=== PATIENT | female | born 1935 | race Asian ===

== ENCOUNTER 2023-04-04 02:46 | Inpatient (IN) | payer MEDICARE, OTHER, SELFPAY ==
[2023-04-04] VITALS (11 sets, daily range): BP systolic 121–138; BP diastolic 55–75; PULSE 74–149; RESP 10–38; TEMP 35.9–37.1; O2SAT 96–98; BMI 18.7
--- NOTE | 2023-04-04 03:03 | ED_ITS ---
HPI - Fall General Chief Complaint: Fall Stated Complaint: fall- blood? Time Seen by Provider: 04/04/23 02:51 Source: EMS Mode of arrival: EMS Limitations: altered mental status History of Present Illness HPI Narrative: Patient is an 87-year-old female. Reported history of dementia. Sent by EMS from [facility] for evaluation of rectal bleeding. I have very little information from the patient she did not come with any information from the facility. Unsure as to her code status. Unsure if she is on any anticoagulation. Patient has a history of dementia per EMS. They did receive this from the nursing staff at the facility. From report patient stated that she slid out of her bed onto the floor. Unsure whether not this was witnessed. We were told that she did not hit her head. They found her sitting on her bottom leading up against the bed. When they put the patient back into bed they noticed that there was blood in her adult diaper. No other visible injuries. She was sent over for further evaluation. Review of Systems Review of Systems ROS Unobtainable: Unobtainable due to mental condition Patient History Social History Smoking Status: Unknown if ever smoked Smoking Status: Unknown if ever smoked Substance Use Type: unknown Exam Initial Vital Signs Initial Vital Signs: Vital Signs Blood Pressure 125/75 04/04/23 02:48 Const General: No ill appearing HENMT Head: normal to inspection and normocephalic Mouth: No moist mucous membranes (Very dry mucous membranes) Resp Effort & Inspection: normal respiratory effort Auscultation: clear to auscultation bilaterally Cardio Rate: tachycardic Rhythm: regular rhythm GI Inspection: distended Palpation: soft, No firm and No guarding Other: Patient has a pedunculated mass on the right upper posterior thigh. No active bleeding. Patient has quite a bit of stool in the rectum. There was obvious blood from the rectum. No hemorrhoids seen or felt. Skin Other: No skin wounds noted. Neuro Other: Patient is talking nonsensical. Does not answer questions. Minimally follows directions. Extrem Other: Moves all 4 extremities. No apparent discomfort with palpation of extremities. Scores GCS Chyna coma scale eye opening: Spontaneous Chyna coma scale verbal response: Sounds [place] coma scale motor response: Localising Chyna coma scale total score: 11 Course Orders Ordered: ED Orders 04/04/23 03:27 Basic Metabolic Panel Stat Complete Blood Count AUTO DIFF Stat Dextrose (Dextrose 5% Water) 1,000 mls @ 70 mls/hr IV CONT SHEYLA Last Admin: 04/04/23 04:17 Dose: 70 mls/hr Documented By: LUIS Vital Signs Vital signs: Vital Signs - 8 hr 04/04/23 02:48 04/04/23 02:49 04/04/23 02:52 Temperature 97.8 F Pulse Rate 117 H 115 H Respiratory Rate 18 Blood Pressure 125/75 125/55 L Pulse Oximetry 96 96 Oxygen Delivery Method Room Air Room Air 04/04/23 03:00 04/04/23 03:30 04/04/23 04:00 Temperature Pulse Rate 120 H 114 H 120 H Respiratory Rate 27 H 10 L 38 H Blood Pressure Pulse Oximetry 97 98 97 Oxygen Delivery Method Room Air Room Air Room Air MDM - Fall Lab Data Attestation: I reviewed the patient's lab results. 04/04/23 03:27 04/04/23 03:27 Labs: Lab Results 04/04/23 Range/Units 03:27 WBC 19.5 H (4.5-11.0) X10^3/uL RBC 6.03 H (4.0-5.2) X10^6/uL Hgb 12.3 (12.0-16.0) g/dL Hct 40.0 (36-46) % MCV 66.3 L (80-100) fL MCH 20.5 L (26-34) PG MCHC 30.9 (30-36) % RDW 16.4 H (11.6-14.8) % Plt Count 541 H (150-400) X10^3/uL Neut % (Auto) 80.0 H (50-75) % Lymph % (Auto) 9.7 L (25-40) % [place] % (Auto) 10.0 (3-14) % Eos % (Auto) 0.1 L (2-4) % Baso % (Auto) 0.2 (0-2) % Neut # (Auto) 85077 H (7874-1060) /uL Lymph # (Auto) 1900 (9278-6175) /uL [place] # (Auto) 2000 H (0-900) /uL Eos # (Auto) 0 (0-450) /uL Baso # (Auto) 0 (0-100) /uL RBC Morphology See below Anisocytosis 1+ H Microcytosis 1+ H Target Cells 1+ H Ovalocytes 1+ H Sodium 159 H* (137-145) mmol/L Potassium 3.4 (3.4-5.1) mmol/L Chloride 120 H (98-107) mmol/L Carbon Dioxide 25 (22-32) mmol/L BUN 60 H (7-17) mg/dL Creatinine 0.88 (0.52-1.04) mg/dL Estimated GFR > 60 (>60) mL/min BUN/Creatinine Ratio 68.2 H (6-22) Glucose 156 H (80-110) mg/dL Calcium 10.0 (8.4-10.2) mg/dL MDM Narrative Medical decision making narrative: Patient did not come with any information. Unsure whether not she has a full code, DNR or comfort measures only. We were able to get some basic information from the facility. It does confirm that she has a history of dementia. She is on olanzapine and quetiapine. Also has a prescription for Augmentin. We contacted a local hospital and was able to get more information. She was at that facility approximately 1 week ago. She was seen at that facility after falling out of her bed. According to the note this seems like this happened at home. She was tachycardic at that visit with a heart rate of 110. Had relatively unremarkable labs. Had a CT scan of the head that was unremarkable. Had a CT scan of the abdomen and pelvis which showed fecal impaction with look like proctitis. She received an enema at that visit and had a large bowel movement. Was started on Augmentin. It does not definitively say but I assume that the patient was transferred to the rehabilitation center from that visit. It does not appear that she was admitted to the hospital. Attempted to contact the patient's daughter (Suzanna at [phone]) however no one picked up the phone. I did have to leave a message. Labs today show hypernatremia. Patient does have very dry mucous membranes. Free water deficit is 2.9 L. patient was started on D5W at 70 mL/hr. Discussed the case with Dr. Patino hospitalist on- call who will admit for further evaluation and treatment. Discharge Plan Departure Patient Disposition: Admitted As Inpatient Clinical Impression: Hypernatremia, Rectal bleeding, Dementia Admit Date/Time: 04/04/23 04:17 Admit Provider: Bereket Patino
[2023-04-04 03:39] LABS: Basophils Absolute Auto 0 /uL (0-100); Basophils Percent Auto 0.2 % (0-2); Eosinophils Absolute Auto 0 /uL (0-450); Eosinophils Percent Auto 0.1 % (2-4); Hemoglobin 12.3 g/dL (12.0-16.0); Lymphocytes Absolute Auto 1900 /uL (1100-4500); Lymphocytes Percent Auto 9.7 % (25-40); Mean Corpuscular HGB Conc 30.9 % (30-36); Mean Corpuscular Hemoglobin 20.5 PG (26-34); Mean Corpuscular Volume 66.3 fL (80-100); Monocytes Absolute Auto 2000 /uL (0-900); Neutrophils Absolute Auto 15600 /uL (1500-7000); Platelet Count 541 X10^3/uL (150-400); Red Blood Cell Count 6.03 X10^6/uL (4.0-5.2); Red Cell Distribution Width 16.4 % (11.6-14.8); White Blood Cell Count 19.5 X10^3/uL (4.5-11.0)
[2023-04-04 03:40] LABS: Add Manual Diff / Slide Review SLIDE REVIEW
[2023-04-04 03:47] LABS: BUN Creatinine Ratio 68.2 (6-22); Blood Urea Nitrogen 60 mg/dL (7-17); Carbon Dioxide 25 mmol/L (22-32); Chloride 120 mmol/L (98-107); Estimated Glomerular Filt Rate > 60 mL/min (>60); Glucose 156 mg/dL (80-110); HEMOLYSIS < 15 (0-50); Potassium 3.4 mmol/L (3.4-5.1)
[2023-04-04 03:52] LABS: Sodium 159 mmol/L (137-145)
[2023-04-04 04:17] LABS: Anisocytosis 1+; Microcytosis 1+; Ovalocytes 1+; Target Cells 1+
[2023-04-04] MEDS: DEXTROSE 5% WATER 1,000 ML 70 ML IV (04:17)
--- NOTE | 2023-04-04 06:33 | PM.HP.1 ---
History of Present Illness History of Present Illness Date Patient Seen: 04/04/23 Time Patient Seen: 06:05 Chief complaint: fall- blood in trousers. Narrative: 87 years old half-way resident with a past medical history of likely advanced dementia was sent in from the half-way for bleeding per rectum. Patient is very confused and not able to give any history. Documentation from the facility is not available as well. 1 for staff who speaks patient's language/Bhutanese was able to get 1 or 2 words but otherwise patient was very confused. Speech is nonsensical. Local hospital was contacted by the emergency room and the review of the record showed recent evaluation about a week ago in the emergency room with a CT scan of the head was unremarkable and a CT abdomen showed fecal impaction with possible proctitis. Patient had received an enema with good bowel movement and was started on oral Augmentin. No further information is available at this time. In the ED, blood pressure was in the 120s and the heart rate in the 110s. Labs showed showed a hemoglobin of 12.3/WBC 19.5, sodium of 159 with a potassium of 3.4 and a chloride of 120/BUN of 60 and a CO2 of 25. Patient was initiated on D5 W and admitted for further evaluation [facility] Social History Smoking Status: Unknown if ever smoked Meds Home Medications and Allergies Allergies Allergy/AdvReac Type Severity Reaction Status Date / Time No Known Drug Allergies Allergy Verified 04/04/23 05:25 Review of Systems Review of Systems Narrative: Patient is confused and unable to do review of system Exam Vital Signs (past 8 hours): - 04/04/23 02:48 04/04/23 02:49 04/04/23 02:52 Temperature 97.8 F Pulse Rate 117 H 115 H Respiratory Rate 18 Blood Pressure 125/75 125/55 L Pulse Oximetry 96 96 Oxygen Delivery Method Room Air Room Air Oxygen Flow Rate 04/04/23 03:00 04/04/23 03:30 04/04/23 04:00 Temperature Pulse Rate 120 H 114 H 120 H Respiratory Rate 27 H 10 L 38 H Blood Pressure Pulse Oximetry 97 98 97 Oxygen Delivery Method Room Air Room Air Room Air Oxygen Flow Rate 04/04/23 04:30 04/04/23 05:00 04/04/23 05:30 Temperature 97.2 F L Pulse Rate 114 H 149 H 112 H Respiratory Rate 27 H 32 H 17 Blood Pressure 138/66 Pulse Oximetry 97 98 97 Oxygen Delivery Method Room Air Oxygen Flow Rate 0 Oxygen Delivery Method Room Air Oxygen Flow Rate 0 Narrative Exam Narrative: Patient is confused. Not following any commands Objective Labs 04/04/23 03:27 04/04/23 03:27 Labs: Laboratory Results - last 24 hr 04/04/23 03:27 WBC 19.5 H RBC 6.03 H Hgb 12.3 Hct 40.0 MCV 66.3 L MCH 20.5 L MCHC 30.9 RDW 16.4 H Plt Count 541 H Neut % (Auto) 80.0 H Lymph % (Auto) 9.7 L [place] % (Auto) 10.0 Eos % (Auto) 0.1 L Baso % (Auto) 0.2 Neut # (Auto) 18369 H Lymph # (Auto) 1900 [place] # (Auto) 2000 H Eos # (Auto) 0 Baso # (Auto) 0 RBC Morphology See below Anisocytosis 1+ H Microcytosis 1+ H Target Cells 1+ H Ovalocytes 1+ H Sodium 159 H* Potassium 3.4 Chloride 120 H Carbon Dioxide 25 BUN 60 H Creatinine 0.88 Estimated GFR > 60 BUN/Creatinine Ratio 68.2 H Glucose 156 H Calcium 10.0 Assessment & Plan Assessment & Plan narrative: 87 years old half-way resident with a past medical history of likely advanced dementia was sent in from the half-way for bleeding per rectum. Patient is very confused and not able to give any history. Documentation from the facility is not available as well. 1 for staff who speaks patient's language/Bhutanese was able to get 1 or 2 words but otherwise patient was very confused. Speech is nonsensical. [facility] was contacted by the emergency room and the review of the record showed recent evaluation about a week ago in the emergency room with a CT scan of the head was unremarkable and a CT abdomen showed fecal impaction with possible proctitis. Patient had received an enema with good bowel movement and was started on oral Augmentin. No further information is available at this time. In the ED, blood pressure was in the 120s and the heart rate in the 110s. Labs showed showed a hemoglobin of 12.3/WBC 19.5, sodium of 159 with a potassium of 3.4 and a chloride of 120/BUN of 60 and a CO2 of 25. Patient was initiated on D5 W and admitted for further evaluation 1. Hypernatremia severe at this time appears most likely secondary to hypovolemia. Continue the D5 W and trend the sodium levels every 4 hours with gradual correction of the sodium by 0.5 mmol/h. Encourage oral hydration if patient is able to take p.o. and correct any electrolyte imbalance 2 Hypokalemia supplement with IV 3.Dementia: advanced. Patient is now oriented X0. Attempted to reach family earlier but unsuccessful will try again to address CODE STATUS. Will need to retrieve medical records from the facility for medication review 4. Leukocytosis more likely secondary to dehydration. Will check a chest x-ray and the urine analysis. Does not appear to be hypoxic at this time and no fever. IV fluids as above and trend closely before initiating antibiotics 5 bleeding per rectum could be from the proctitis. Trend the hemoglobin levels closely and supportive care 6 DVT prophylaxis will be with SCDs CODE STATUS at this time is full code pending clarification from family or POA Patient is admitted under inpatient status. Given the hypernatremia with multiple electrolyte imbalance, meets criteria for inpatient with expected length of stay greater than 2 midnights Patient was evaluated with the help of video communication device. Provider is located in [facility]. Time spent is 15 minutes Quality VTE Deep Vein Thrombosis/Pulmonary Embolism Present on Admission: No
[2023-04-04 06:54] LABS: MRSA (Nasal) PCR Not Detected (Not Detect)
[2023-04-04 06:55] LABS: BUN Creatinine Ratio 72.8 (6-22); Blood Urea Nitrogen 59 mg/dL (7-17); Calcium 9.6 mg/dL (8.4-10.2); Carbon Dioxide 30 mmol/L (22-32); Chloride 119 mmol/L (98-107); Estimated Glomerular Filt Rate > 60 mL/min (>60); Glucose 194 mg/dL (80-110); HEMOLYSIS < 15 (0-50); Potassium 3.2 mmol/L (3.4-5.1)
[2023-04-04 07:09] LABS: Sodium 159 mmol/L (137-145)
[2023-04-04] MEDS: POTASSIUM CHLORIDE IN WATER 10 MEQ/100 ML PIGGYBACK 100 MEQ IV ×4 (07:30→13:36)
[2023-04-04 08:06] LABS: Basophils Absolute Auto 0 /uL (0-100); Basophils Percent Auto 0.2 % (0-2); Eosinophils Absolute Auto 0 /uL (0-450); Hematocrit 38.9 % (36-46); Lymphocytes Absolute Auto 1700 /uL (1100-4500); Lymphocytes Percent Auto 9.2 % (25-40); Mean Corpuscular HGB Conc 30.9 % (30-36); Mean Corpuscular Hemoglobin 20.5 PG (26-34); Mean Corpuscular Volume 66.4 fL (80-100); Monocytes Absolute Auto 1800 /uL (0-900); Monocytes Percent Auto 9.5 % (3-14); Neutrophils Absolute Auto 15100 /uL (1500-7000); Neutrophils Percent Auto 81.1 % (50-75); Platelet Count 489 X10^3/uL (150-400); Red Blood Cell Count 5.86 X10^6/uL (4.0-5.2); Red Cell Distribution Width 16.2 % (11.6-14.8); White Blood Cell Count 18.7 X10^3/uL (4.5-11.0)
[2023-04-04 08:08] LABS: Add Manual Diff / Slide Review SLIDE REVIEW
[2023-04-04 08:17] LABS: Procalcitonin 0.12 ng/mL (<0.5)
[2023-04-04 08:27] LABS: Anisocytosis 1+; Microcytosis 1+
[2023-04-04 08:28] LABS: Ovalocytes 1+; Target Cells 1+
[2023-04-04 08:36] LABS: Lactate (Lactic Acid) 1.9 mmol/L (0.7-2.1)
[2023-04-04 09:14] LABS: Sodium 155 mmol/L (137-145)
[2023-04-04] MEDS: QUETIAPINE 25 MG TABLET PO (09:41)
[2023-04-04] MEDS: diazePAM 5 MG TABLET PO (09:41)
[2023-04-04] MEDS: ALPRAZolam 0.25 MG TABLET PO (09:41)
[2023-04-04] MEDS: DEXTROSE 5% WATER 1,000 ML 150 ML IV (12:39)
[2023-04-04 13:04] LABS: Magnesium 2.7 mg/dL (1.6-2.3)
[2023-04-04 13:06] LABS: Sodium 150 mmol/L (137-145)
--- NOTE | 2023-04-04 15:21 | P.HP_ITS ---
History of Present Illness History of Present Illness Date Patient Seen: 04/04/23 Time Patient Seen: 06:05 Chief complaint: fall- blood in trousers. Narrative: 87 years old senior care resident with a past medical history of likely advanced dementia was sent in from the senior care for bleeding per rectum. Patient is very confused and not able to give any history. Documentation from the facility is not available as well. 1 for staff who speaks patient's language/Ku[place]i was able to get 1 or 2 words but otherwise patient was very confused. Speech is nonsensical. Local hospital was contacted by the emergency room and the review of the record showed recent evaluation about a week ago in the emergency room with a CT scan of the head was unremarkable and a CT abdomen showed fecal impaction with possible proctitis. Patient had received an enema with good bowel movement and was started on oral Augmentin. No further information is available at this time. In the ED, blood pressure was in the 120s and the heart rate in the 110s. Labs showed showed a hemoglobin of 12.3/WBC 19.5, sodium of 159 with a potassium of 3.4 and a chloride of 120/BUN of 60 and a CO2 of 25. Patient was initiated on D5 W and admitted for further evaluation [facility] Social History Smoking Status: Unknown if ever smoked Meds Home Medications and Allergies Home Medications Medication Instructions Recorded Confirmed Type acetaminophen 325 mg capsule 650 mg PO Q6H PRN pain 04/04/23 04/04/23 History alprazolam 0.25 mg tablet 0.25 mg PO BID PRN anxiety 04/04/23 04/04/23 History amoxicillin 875 mg-potassium 1 tab PO Q12H 04/04/23 04/04/23 History clavulanate 125 mg tablet diazepam 5 mg tablet 5 mg PO DAILY 04/04/23 04/04/23 History olanzapine 2.5 mg tablet 2.5 mg PO ONCE PM 04/04/23 04/04/23 History polyethylene glycol 3350 17 gram 17 g PO DAILY 04/04/23 04/04/23 History oral powder packet quetiapine 25 mg tablet 25 mg PO BID 04/04/23 04/04/23 History Allergies Allergy/AdvReac Type Severity Reaction Status Date / Time No Known Drug Allergies Allergy Verified 04/04/23 05:25 Review of Systems Review of Systems Narrative: Patient is confused and unable to do review of system Exam Vital Signs (past 8 hours): - 04/04/23 10:10 04/04/23 14:00 Temperature 98.8 F 96.6 F L Pulse Rate 74 85 Respiratory Rate 19 19 Blood Pressure 125/56 L 121/55 L Pulse Oximetry 97 96 Oxygen Flow Rate 0 0 Oxygen Delivery Method Room Air Oxygen Flow Rate 0 Narrative Exam Narrative: GEN: thin, demented, not oriented, in mitts HEENT: moist mucous membranes, PERRL NECK: trachea midline, no JVD CV: regular rate and rhythm, no murmurs PULM: clear bilaterally ABD: soft, nontender, nondistended, no organomegaly EXT: warm and well perfused with no edema NEURO: awake, alert, confused Objective Labs 04/04/23 07:45 04/04/23 10:07 Labs: Laboratory Results - last 24 hr 04/04/23 04/04/23 04/04/23 03:27 05:27 06:31 WBC 19.5 H RBC 6.03 H Hgb 12.3 Hct 40.0 MCV 66.3 L MCH 20.5 L MCHC 30.9 RDW 16.4 H Plt Count 541 H Neut % (Auto) 80.0 H Lymph % (Auto) 9.7 L [place] % (Auto) 10.0 Eos % (Auto) 0.1 L Baso % (Auto) 0.2 Neut # (Auto) 23910 H Lymph # (Auto) 1900 [place] # (Auto) 2000 H Eos # (Auto) 0 Baso # (Auto) 0 RBC Morphology See below Anisocytosis 1+ H Microcytosis 1+ H Target Cells 1+ H Ovalocytes 1+ H Sodium 159 H* 159 H* Potassium 3.4 3.2 L Chloride 120 H 119 H Carbon Dioxide 25 30 BUN 60 H 59 H Creatinine 0.88 0.81 Estimated GFR > 60 > 60 BUN/Creatinine Ratio 68.2 H 72.8 H Glucose 156 H 194 H Lactate Calcium 10.0 9.6 Magnesium Procalcitonin 0.12 Nasal Screen MRSA (PCR) Not detected 04/04/23 04/04/23 04/04/23 07:45 09:00 10:07 WBC 18.7 H RBC 5.86 H Hgb 12.0 Hct 38.9 MCV 66.4 L MCH 20.5 L MCHC 30.9 RDW 16.2 H Plt Count 489 H Neut % (Auto) 81.1 H Lymph % (Auto) 9.2 L [place] % (Auto) 9.5 Eos % (Auto) 0.0 L Baso % (Auto) 0.2 Neut # (Auto) 87604 H Lymph # (Auto) 1700 [place] # (Auto) 1800 H Eos # (Auto) 0 Baso # (Auto) 0 RBC Morphology See below Anisocytosis 1+ H Microcytosis 1+ H Target Cells 1+ H Ovalocytes 1+ H Sodium 155 H 150 H Potassium Chloride Carbon Dioxide BUN Creatinine Estimated GFR BUN/Creatinine Ratio Glucose Lactate 1.9 Calcium Magnesium 2.7 H Procalcitonin Nasal Screen MRSA (PCR) Assessment & Plan Assessment & Plan narrative: A goals of care discussion (20min) was held with daughter and granddaughter about patient's severe dementia, along with her severe dehydration, urinary retention and constipation. Patient also very underweight from not eating. They agreed that she wouldn't want to live this way. They would like to keep her comfortable. Patient was made full comfort care on 04/04. 1. Hypernatremia severe at this time appears most likely secondary to hypovolemia. Initially 159. Improved to 150 with D5W IVF. 2 Hypokalemia supplement with IV 3. Severe advanced Dementia. Patient is oriented X0. Per family this is her baseline. 4. Leukocytosis more likely secondary to dehydration 5 bleeding per rectum could be from the proctitis. CODE STATUS is DNR. Patient is admitted under inpatient status. Given the hypernatremia with multiple electrolyte imbalance, meets criteria for inpatient with expected length of stay greater than 2 midnights Quality VTE Deep Vein Thrombosis/Pulmonary Embolism Present on Admission: No
[2023-04-04] MEDS: MORPHINE 2 MG/ML INJ IV (15:30)
[2023-04-04] MEDS: LORazepam 2 MG/ML ORAL SOL 1 MG SL (16:18)
[2023-04-04] MEDS: MORPHINE 10 MG/0.5 ML ORAL SYRINGE PO ×5 (16:42→23:01)
--- NOTE | 2023-04-04 17:12 | PC.NURSE ---
at this time, pt is asleep and just been medicated. fitch intact. IV intact. not in distress. mittens on.
[2023-04-05] MEDS: MORPHINE 10 MG/0.5 ML ORAL SYRINGE PO ×6 (00:11→08:48)
[2023-04-05] MEDS: MORPHINE 2 MG/ML INJ IV ×2 (05:10→06:46)
[2023-04-05] MEDS: LORazepam 2 MG/ML ORAL SOL 1 MG SL ×2 (06:02→18:10)
[2023-04-05] MEDS: MORPHINE 100 MG in DEXTROSE 5 % IN WATER 90 ML 10 MG IV (09:40)
[2023-04-05 12:12] VITALS: BP 121/56; PULSE 126; RESP 14; TEMP 37.3; O2SAT 94
--- NOTE | 2023-04-05 14:08 | CM.DANOTE ---
DCP Assessment Note Pt is a 87yo F from [facility]. Pt was found after fall to have blood in her brief. Was found to have high sodium. Known severe dementia. PCP Howard Mccauley [employer] and [employer] FACTORY MANAGER reviewed EMR. Per chart review, pt confused and not good historian. Speech nonsensical. Per H&P, dtr Suzanna ([phone]) and other family decided to make pt comfort care. Per provider, pt likely imminent and to pass here. Per RN, pt on morphine drip now to remain comfortable. Slow breathing, likely to pass tomorrow or Saturday. Per RN, family wants pt to remain here. Per RN, concerned about pt not being stable enough to transport home with hospice. Per RN, pt just moved to [facility] a few days ago. Likely no needs from CM team for pt or family. This FACTORY MANAGER decided to let family be and offer resources/assistance if indicated. Plan: pt expected to be imminent, likely within the next 24-48hrs. CM team will continue to follow as needed to support family. CM team will pursue hospice referral if pt stabilizes to transport. OSIRIS Alejandra Discharge Planning/Care Management CM Discharge Assessment Start: 04/05/23 13:50 Freq: Status: Active Protocol: Document 04/05/23 13:50 NAVEED (Rec: 04/05/23 13:51 [id number]) Discharge Planning Assessment Assigned Dozer Operator OSIRIS Blanco DPOA/Assigned Designee Name Suzanna Vanndutch Contact Information [phone] Advance Directives? No History Provided By Medical Record Prior Living Arrangements Skilled Nurse Facility Household Members none Type of transporation used prior to Relies on Others admit Facility Name Admitted From: [facility] Independent with ADL's No Is patient alert and oriented? No Needs Assistance With Bathing,Eating,Grooming,Meal Prep,Toileting,Managing Medications,Home Chores / Shopping Discharge Plan Pt expected to in Hospital Whiteboard Updated in Patient Room with No name and ext. # of Dozer Operator Review Status In Process Next Review Type Continued Stay Review
--- NOTE | 2023-04-05 15:51 | P.PN_ITS ---
Subjective Subjective Interval history: Morphine drip started due to recurrent need for morphine pushes. Family at bedside. Patient is comfortable. Exam Vital Signs (past 8 hours): - 04/05/23 12:12 Temperature 99.1 F Pulse Rate 126 H Respiratory Rate 14 Blood Pressure 121/56 L Pulse Oximetry 94 Oxygen Flow Rate 0 Oxygen Delivery Method Room Air Oxygen Flow Rate 0 Narrative Exam Narrative: GEN: thin, sleeping, in mitts HEENT: moist mucous membranes, PERRL NECK: trachea midline, no JVD CV: regular rate and rhythm, no murmurs PULM: clear bilaterally ABD: soft, nontender, nondistended, no organomegaly EXT: warm and well perfused with no edema NEURO: confused Objective Labs 04/04/23 07:45 04/04/23 10:07 [facility] Social History household members: none Smoking Status: Unknown if ever smoked Assessment & Plan Assessment & Plan narrative: A goals of care discussion (20min) was held with daughter and granddaughter about patient's severe dementia, along with her severe dehydration, urinary retention and constipation. Patient also very underweight from not eating. They agreed that she wouldn't want to live this way. They would like to keep her comfortable. Patient was made full comfort care on 04/04. 1. Hypernatremia severe at this time appears most likely secondary to hypovolemia. Initially 159. Improved to 150 with D5W IVF. 2 Hypokalemia supplement with IV 3. Severe advanced Dementia. Patient is oriented X0. Per family this is her baseline. 4. Leukocytosis more likely secondary to dehydration 5 bleeding per rectum could be from the proctitis. CODE STATUS is DNR. Dispo: Patient is imminent and will likely pass in 48 hours. Quality VTE Deep Vein Thrombosis/Pulmonary Embolism Present on Admission: No
[2023-04-05] MEDS: MORPHINE 100 MG in DEXTROSE 5 % IN WATER 90 ML 11 MG IV (18:10)
[2023-04-05] MEDS: diazePAM 10 MG/2 ML SYRINGE 5 MG IV ×2 (20:52→22:31)
[2023-04-06] MEDS: diazePAM 10 MG/2 ML SYRINGE 5 MG IV ×4 (02:48→22:42)
[2023-04-06] MEDS: MORPHINE 100 MG in DEXTROSE 5 % IN WATER 90 ML 11 MG IV ×2 (02:59→11:03)
[2023-04-06 08:00] VITALS: BP 98/53; PULSE 91; RESP 19; TEMP 36.3; O2SAT 89
[2023-04-06] MEDS: LORazepam 2 MG/ML ORAL SOL SL ×5 (09:32→21:55)
--- NOTE | 2023-04-06 11:20 | CM.DPC ---
DCP Cont: Met briefly with patient's daughter and grand daughter, introduced self and role. They have a home picked out for patient, she is currently on comfort care, on a Morphine drip, hospitalist here in the hospital. Family wanted to know if covers home expenses, patient has for Life. Let her know that this [place] Granite Cutter Apprentice can't answer this question, encouraged her to first call the home, she was also inquiring if social security covers any of this as well. Also, encouraged her to call as well. home may also have knowledge about social security, this would have to be followed up by their office. P: DCP to continue to follow. Encouraged family to let this [place] raw material planner know if any additional questions. Bree Adrian RN/Architectural Engineering Teacher
--- NOTE | 2023-04-06 17:12 | PM.PN.1 ---
Subjective Subjective Interval history: Patient comfortable and sleeping. On morphine drip at 12. Breathing more apneic today. Exam Vital Signs (past 8 hours): Oxygen Delivery Method Room Air Oxygen Flow Rate 0 Narrative Exam Narrative: Comfortable and sleeping Objective Labs 04/04/23 07:45 04/04/23 10:07 [facility] Social History household members: none Smoking Status: Unknown if ever smoked Assessment & Plan Assessment & Plan narrative: A goals of care discussion (20min) was held with daughter and granddaughter about patient's severe dementia, along with her severe dehydration, urinary retention and constipation. Patient also very underweight from not eating. They agreed that she wouldn't want to live this way. They would like to keep her comfortable. Patient was made full comfort care on 04/04. 1. Hypernatremia severe at this time appears most likely secondary to hypovolemia. Initially 159. Improved to 150 with D5W IVF. 2 Hypokalemia supplement with IV 3. Severe advanced Dementia. Patient is oriented X0. Per family this is her baseline. 4. Leukocytosis more likely secondary to dehydration 5 bleeding per rectum could be from the proctitis. CODE STATUS is DNR. Dispo: Patient is imminent and will likely pass in 48 hours. Quality VTE Deep Vein Thrombosis/Pulmonary Embolism Present on Admission: No
[2023-04-06] MEDS: MORPHINE 100 MG in DEXTROSE 5 % IN WATER 90 ML 15 MG IV (17:40)
[2023-04-07] MEDS: diazePAM 10 MG/2 ML SYRINGE 5 MG IV ×10 (00:07→16:53)
[2023-04-07] MEDS: MORPHINE 2 MG/ML INJ IV ×5 (01:12→03:55)
[2023-04-07] MEDS: MORPHINE 100 MG in DEXTROSE 5 % IN WATER 90 ML 15 MG IV ×4 (03:59→20:40)
[2023-04-07 08:00] VITALS: BP 95/44; PULSE 64; RESP 19; TEMP 35.9; O2SAT 68
[2023-04-07] MEDS: LORazepam 2 MG/ML ORAL SOL SL ×4 (10:06→20:40)
--- NOTE | 2023-04-07 10:22 | CM.DPC ---
DCP Cont. Reviewed EMR and team rounds for status updates. Pt continues her active dying process, appearing comfortable with no s/s of anxiety or distress. Family have been vigiling at bedside, and this morning have gone home to get some rest before returning again later. No DCP needs identified at this time. Will continue to monitor for evolving support needs.
--- NOTE | 2023-04-07 13:44 | P.PN_ITS ---
Subjective Subjective Date Patient Seen: 04/07/23 Interval history: Pt on comfort care, getting morphine 15 mg/hr IV and diazepam 5 mg IV qhr prn. respirations mostly regular. Dtr at bedside and feels pt is comfortable. Exam Vital Signs (past 8 hours): - 04/07/23 07:00 04/07/23 08:00 Temperature 96.6 F L Pulse Rate 64 Respiratory Rate 19 Blood Pressure 95/44 L Pulse Oximetry 68 L Oxygen Delivery Method Room Air Oxygen Delivery Method Room Air Oxygen Flow Rate 0 Objective Labs 04/04/23 07:45 04/04/23 10:07 [facility] Social History household members: none Smoking Status: Unknown if ever smoked Assessment & Plan Assessment & Plan narrative: A goals of care discussion (20min) was held with daughter and granddaughter about patient's severe dementia, along with her severe dehydration, urinary retention and constipation. Patient also very underweight from not eating. They agreed that she wouldn't want to live this way. They would like to keep her comfortable. Patient was made full comfort care on 04/04. 1. Hypernatremia severe at this time appears most likely secondary to hypovolemia. Initially 159. Improved to 150 with D5W IVF. 2 Hypokalemia supplement with IV 3. Severe advanced Dementia. Patient is oriented X0. Per family this is her baseline. 4. Leukocytosis more likely secondary to dehydration 5 bleeding per rectum could be from the proctitis. CODE STATUS is DNR. Dispo: Patient is imminent and will likely pass in 48 hours. Quality VTE Deep Vein Thrombosis/Pulmonary Embolism Present on Admission: No
[2023-04-07] MEDS: MORPHINE 10 MG/0.5 ML ORAL SYRINGE PO (14:58)
[2023-04-08] MEDS: MORPHINE 100 MG in DEXTROSE 5 % IN WATER 90 ML 15 MG IV ×2 (04:01→13:03)
--- NOTE | 2023-04-08 08:21 | P.PN_ITS ---
Subjective Subjective Interval history: Not responding, on comfort care. Morphine drip at 15 mg/hour. Exam Vital Signs (past 8 hours): Oxygen Delivery Method Room Air Oxygen Flow Rate 0 Narrative Exam Narrative: Appears comfortable. NAD Sedated Breathing normal rate Flat abdomen. No edema. Objective Labs 04/04/23 07:45 04/04/23 10:07 [facility] Social History household members: none Smoking Status: Unknown if ever smoked Assessment & Plan Assessment & Plan narrative: 1. Hypernatremia severe at this time appears most likely secondary to hypovolemia. Initially 159. Improved to 150 with D5W IVF. 2 Hypokalemia supplement with IV 3. Severe advanced Dementia. Patient is oriented X0. Per family this is her baseline. 4. Leukocytosis more likely secondary to dehydration 5 Bleeding per rectum could be from the proctitis. 6. Comfort care measures. Continue morphine drip and symptomatic treatment. CODE STATUS is DNR. Dispo: Patient is imminent and will likely pass in 48 hours. Quality VTE Deep Vein Thrombosis/Pulmonary Embolism Present on Admission: No
--- NOTE | 2023-04-08 10:59 | CM.DPC ---
DCP Cont. Reviewed EMR and team rounds for status updates. Pt remains non-responsive, actively dying, appearing very comfortable. Will continue to monitor for any evolving support needs.
[2023-04-08 11:21] VITALS: TEMP 36.4
[2023-04-08 13:26] VITALS: O2SAT 91
[2023-04-08 17:51] VITALS: PULSE 65; TEMP 35.9; O2SAT 86
[2023-04-08] MEDS: WATER IV (19:18)
[2023-04-08] MEDS: MORPHINE IV (19:18)
[2023-04-08] MEDS: DEXTROSE 5% IV (19:18)
[2023-04-09] MEDS: DEXTROSE 5% IV (02:07)
[2023-04-09] MEDS: MORPHINE IV (02:07)
[2023-04-09] MEDS: WATER IV (02:07)
--- NOTE | 2023-04-09 08:32 | P.PN_ITS ---
Subjective Subjective Interval history: Appears comfortable, obtunded. Exam Vital Signs (past 8 hours): Oxygen Delivery Method Room Air Oxygen Flow Rate 0 Narrative Exam Narrative: Appears comfortable. NAD Sedated Breathing normal rate, lungs clear. Flat abdomen. No edema. Objective Labs 04/04/23 07:45 04/04/23 10:07 [facility] Social History household members: none Smoking Status: Unknown if ever smoked Assessment & Plan Assessment & Plan narrative: 1. Hypernatremia severe at this time appears most likely secondary to hypovolemia. Initially 159. Improved to 150 with D5W IVF. 2 Hypokalemia supplement with IV 3. Severe advanced Dementia. Patient is oriented X0. Per family this is her baseline. 4. Leukocytosis more likely secondary to dehydration 5 Bleeding per rectum could be from the proctitis. 6. Comfort care measures. Continue morphine drip and symptomatic treatment. Plan: Continue comfort measures. She has on a morphine drip for pain control. CODE STATUS is DNR. Dispo: Patient is imminent and will likely pass in 48 hours. Quality VTE Deep Vein Thrombosis/Pulmonary Embolism Present on Admission: No
[2023-04-09 09:00] VITALS: BP 94/49; PULSE 74; TEMP 35.7; O2SAT 86
[2023-04-09] MEDS: MORPHINE 10 MG/0.5 ML ORAL SYRINGE PO ×3 (09:27→12:48)
[2023-04-09] MEDS: MORPHINE 2 MG/ML INJ IV ×11 (09:37→12:42)
--- NOTE | 2023-04-09 10:38 | CM.DPC ---
DCP Cont. Reviewed EMR and team rounds for status updates. Pt very close to passing today, she appears comfortable, no s/s of anxiety or distress noted. Will continue to monitor for family support needs.
[2023-04-09] MEDS: MORPHINE 100 MG in DEXTROSE 5 % IN WATER 90 ML 15 MG IV ×2 (12:47→19:24)
[2023-04-10] MEDS: LORazepam 2 MG/ML ORAL SOL SL ×2 (00:33→23:02)
[2023-04-10] MEDS: diazePAM 10 MG/2 ML SYRINGE 5 MG IV ×6 (01:20→21:28)
[2023-04-10] MEDS: MORPHINE 100 MG in DEXTROSE 5 % IN WATER 90 ML 15 MG IV ×2 (02:04→08:56)
--- NOTE | 2023-04-10 08:13 | P.PN_ITS ---
Subjective Subjective Interval history: Appears comfortable, obtunded. Exam Vital Signs (past 8 hours): Oxygen Delivery Method Room Air Oxygen Flow Rate 0 Narrative Exam Narrative: Appears comfortable. NAD Sedated Breathing normal rate, lungs clear. Flat abdomen. No edema. Objective Labs 04/04/23 07:45 04/04/23 10:07 [facility] Social History household members: none Smoking Status: Unknown if ever smoked Assessment & Plan Assessment & Plan narrative: 1. Hypernatremia. Present on admission. 2 Hypokalemia. Present on admission. 3. Severe advanced Dementia. Present on admission. 4. Leukocytosis . Present on admission. 5 Bleeding per rectum could be from the proctitis. Present on admission. 6. Comfort care measures. Continue morphine drip and symptomatic treatment. Plan: Continue comfort measures. She has on a morphine drip for pain control. Quality VTE Deep Vein Thrombosis/Pulmonary Embolism Present on Admission: No
[2023-04-10] MEDS: MORPHINE 2 MG/ML INJ IV ×2 (09:25→13:55)
--- NOTE | 2023-04-10 11:05 | CM.DPC ---
DCP Cont. Reviewed EMR and team rounds for status updates. Pt continues active dying status. Will continue to monitor for any family support needs.
[2023-04-10] MEDS: MORPHINE 100 MG in DEXTROSE 5 % IN WATER 90 ML 17 MG IV (16:17)
--- NOTE | 2023-04-10 17:53 | PC.NURSE ---
Day Shift Note Patient continues on comfort care. Unresponsive. Breathing becoming more irregular and more labored this afternoon, morphine gtt titrated up for comfort, currently at 20 mg/hr. Small smears of dark tarry/bloody stools throughout shift. Rosen catheter in place. Daughter Suzanna at bedside off and on throughout day.
[2023-04-10] MEDS: MORPHINE 100 MG in DEXTROSE 5 % IN WATER 90 ML 20 MG IV (21:49)
[2023-04-11] MEDS: LORazepam 2 MG/ML ORAL SOL SL ×9 (00:22→16:11)
[2023-04-11] MEDS: MORPHINE 100 MG in DEXTROSE 5 % IN WATER 90 ML 20 MG IV (03:21)
[2023-04-11] MEDS: SCOPOLAMINE 1 PATCH TOP (08:44)
[2023-04-11] MEDS: MORPHINE 100 MG in DEXTROSE 5 % IN WATER 90 ML 22 MG IV (08:44)
--- NOTE | 2023-04-11 08:47 | PC.NURSE ---
Pt's breathing is agonal and shallow with occasional moaning/sighing irregular respirations-increased Morphine drip to apparent discomfort and work of breathing. Pt given lorazepam SL to increase comfort and decrease anxiety. Pt respirations 20/min shallow and irregular. Applied Scop. patch to decrease secretions. Provided mouth and lip care. Pt's daughter was called and is now at the bedside.
--- NOTE | 2023-04-11 10:33 | PC.NURSE ---
Changed bedding, gown, brief. Repositioned Pt in bed with heels floated. Provided mouth/oral care. Pt a bit restless and moaning so increased Morphine drip to 28 to increase comfort and decrease work of breathing. Daughter is at the bedside.
[2023-04-11] MEDS: diazePAM 10 MG/2 ML SYRINGE 5 MG IV ×3 (10:51→17:08)
--- NOTE | 2023-04-11 11:36 | PC.NURSE ---
Increased Morphine infusion to 32/mls hr. Pt respirations are shallow with a rate of 16/ml but Pt continuing to moan at times. Daughter at the bedside and very concerned about Pt's work at breathing and moaning. Will continue to monitor Pt to insure comfort and adjust morphine as needed to make her comfortable.
[2023-04-11] MEDS: MORPHINE 10 MG/0.5 ML ORAL SYRINGE PO ×4 (12:09→18:56)
--- NOTE | 2023-04-11 12:47 | PC.NURSE ---
Pt with increased work of breathing, furrowed brow, and moaning. Gave Valium to help the patient to relax and will continue to monitor Pt's pain management and breathing exertion to provide comfort. Daughter Suzanna at the bedside requesting increased morphine to help to decrease moaning and respiratory exertion.
[2023-04-11] MEDS: MORPHINE 100 MG in DEXTROSE 5 % IN WATER 90 ML 38 MG IV (12:59)
--- NOTE | 2023-04-11 14:46 | CM.DPC ---
DCP Comfort Care Per MD, pt's morphine increased and per RN pt with increased labor of breathing and moaning and respirations decreased and anticipate pt to today and Dtr and family bedside. OSIRIS Sne
--- NOTE | 2023-04-11 15:00 | P.PN_ITS ---
Subjective Subjective Interval history: Appears comfortable, obtunded. Exam Vital Signs (past 8 hours): Oxygen Delivery Method Room Air Oxygen Flow Rate 0 Narrative Exam Narrative: Appears comfortable. Objective Labs 04/04/23 07:45 04/04/23 10:07 [facility] Social History household members: none Smoking Status: Unknown if ever smoked Assessment & Plan Assessment & Plan narrative: 1. Hypernatremia. Present on admission. 2 Hypokalemia. Present on admission. 3. Severe advanced Dementia. Present on admission. 4. Leukocytosis . Present on admission. 5 Bleeding per rectum could be from the proctitis. Present on admission. 6. Comfort care measures. Continue morphine drip and symptomatic treatment. Added fentanyl patch due to increased morphine requirements. Plan: Continue comfort measures. She has on a morphine drip for pain control. Code:DNR, surrogate is daughter. Quality VTE Deep Vein Thrombosis/Pulmonary Embolism Present on Admission: No
[2023-04-11] MEDS: fentaNYL 50 MCG/PATCH 100 MCG TOP (15:14)
--- NOTE | 2023-04-11 15:25 | PC.NURSE ---
Pt repositioned in bed. Fentanyl patches applied to right back as ordered. Morphine drip increased to 50mls/hr -Pt moaning and working hard to draw a breath. Pt's family is aware and requests pain meds increased to Pt's comfort.
[2023-04-11] MEDS: MORPHINE 100 MG in DEXTROSE 5 % IN WATER 90 ML 50 MG IV (15:41)
[2023-04-11] MEDS: HYDROMORPHONE 2 MG INJ IV ×5 (16:39→21:20)
[2023-04-11] MEDS: MORPHINE IV ×2 (18:00→21:57)
[2023-04-11] MEDS: SODIUM CHLORIDE 0.9% IV ×2 (18:00→21:57)
[2023-04-11] MEDS: PHENobarbital 65 MG/ML VIAL 130 MG IV ×3 (18:04→21:20)
[2023-04-11] MEDS: fentaNYL 50 MCG/PATCH TOP (18:35)
[2023-04-12] MEDS: MORPHINE 10 MG/0.5 ML ORAL SYRINGE PO ×2 (00:22→03:58)
[2023-04-12] MEDS: LORazepam 2 MG/ML ORAL SOL SL ×4 (00:22→12:22)
[2023-04-12] MEDS: diazePAM 10 MG/2 ML SYRINGE 5 MG IV ×4 (01:37→15:33)
[2023-04-12] MEDS: HYDROMORPHONE 2 MG INJ IV ×3 (02:39→15:00)
[2023-04-12] MEDS: MORPHINE IV ×3 (07:44→18:53)
[2023-04-12] MEDS: SODIUM CHLORIDE 0.9% IV ×3 (07:44→18:53)
[2023-04-12] MEDS: PHENobarbital 65 MG/ML VIAL 130 MG IV ×2 (08:29→16:13)
[2023-04-12 09:30] VITALS: PULSE 53; TEMP 35.8; O2SAT 90
--- NOTE | 2023-04-12 12:11 | P.PN_ITS ---
Subjective Subjective Interval history: Appears comfortable, obtunded. Exam Vital Signs (past 8 hours): - 04/12/23 09:30 Temperature 96.4 F L Pulse Rate 53 L Pulse Oximetry 90 L Oxygen Delivery Method Room Air Oxygen Flow Rate 0 Narrative Exam Narrative: Appears comfortable. with agonal breathing. Objective Labs 04/04/23 07:45 04/04/23 10:07 [facility] Social History household members: none Smoking Status: Unknown if ever smoked Assessment & Plan Assessment & Plan narrative: 1. Hypernatremia. Present on admission. 2 Hypokalemia. Present on admission. 3. Severe advanced Dementia. Present on admission. 4. Leukocytosis . Present on admission. 5 Bleeding per rectum could be from the proctitis. Present on admission. 6. Comfort care measures. Continue morphine drip and symptomatic treatment. Added fentanyl patch due to increased morphine requirements. Plan: Continue comfort measures. She has on a morphine drip, fentanyl patches, and phenobarbital for pain and symptom control. Her passing appears imminent, continues to require signficant amount of narcotic and barbituate medications necessitating inpatient treatment. Code:DNR, surrogate is daughter. Quality VTE Deep Vein Thrombosis/Pulmonary Embolism Present on Admission: No
--- NOTE | 2023-04-12 12:12 | CM.DPC ---
Addendum entered by Bree Adrian R.N. 04/13/23 10:34: Georgia from [facility] called back, indicated that the field administrator did not receive the referral. Georgia is a volunteer, stated, their referral department is not in on the weekends, not sure if it was sent to another department or not. She gave a fax number of: [phone]. Will go ahead and fax over the referral. Addendum entered by OSIRIS Sen 04/12/23 14:56: ADD: [facility] does not feel they can meet pt's comfort needs and declines accepting. [facility] reviewed and could accept with an opening for SOC tomorrow Sat or Saturday. SW met bedside with Dtr, granddtr, and very young great grandson and explained role and discussed the potential for pt's stability to allow for her to d/c the hospital to another setting for end of life care (home vs SNF vs Hospice House) as pt has remained in the hospital all week on Comfort Care. Dtr and Granddtr quite adamant that they do not feel that they can adequately care for the pt at their home with Hospice support as Granddtr works vocational case manager and has young son and Dtr does not feel she can physically or emotionally complete end of life care. Dtr states she is not comfortable with pt going to another facility either as she was sure pt would yesterday and does not feel pt would survive transport. SW provided Dtr with [facility] brochure to review and also encouraged her to utilize them even for Grief Support. Dtr very appreciative. MARK updated RN and also [facility] who will keep the referral and wait for updates over the weekend and can be utilized Mon if pt still has not . BF Addendum entered by OSIRIS Sen 04/12/23 12:47: ADD: Return call from [facility] ([phone]), they are willing to review clinicals and then determine if they have bed availability for this weekend. MAYKEL Norman faxed to [phone] for review. Call from Cristal at [facility], they currently do not have a good private room for pt for comfort care and decline at this time. [facility] still reviewing. BF Original Note: DCP Ongoing Comfort Care Per MD, pt on multiple comfort meds with increased morphine drip and continues to have some agonal breathing but also O2 sats 88 on room air and continues to anticipate that pt is imminent and MD unsure if Hospice at home or in a facility could adequately manage her morphine/comfort med needs or that pt would survive transport. MARK contacted [facility] admission where pt was admitted from to request they review to see if they can accept pt on Comfort with sublingual and [facility] currently has no admits until after the weekend on Mon or this coming week in about 4 days. MARK sent brief clinicals/med list to [facility] and [facility] admissions requesting review of pt's needs to determine if they felt they could manage pt on Comfort Care. MARK called [facility] and currently they do not anticipate an open bed for at least a few days as they have a waitlist and admissions planned already but SW left [facility] for intake team requesting call back to discuss pt's current comfort med needs and if they could manage those end of life needs. MAYKEL Norman kindly made [facility] referral and MARK called and spoke to Warren with intake and updated on pt status and she will review to determine if they feel pt would be a good candidate as their Hospice Providers are typically more comfortable with increased comfort med needs and options and will call SW back and look at their schedule to determine if they have SOC in the next day or two. Dtr was encouraged to go home to shower as she has been bedside daily for long periods of time and Dtr is not currently bedside. Plan: SW to follow closely for above reviews to determine back up plan for comfort care if pt continues to be stable on increased comfort meds for plan of d/c from the hospital. OSIRIS Sen
[2023-04-13] MEDS: HYDROMORPHONE 2 MG INJ IV ×5 (02:31→15:29)
[2023-04-13] MEDS: PHENobarbital 65 MG/ML VIAL 130 MG IV ×2 (02:31→15:43)
[2023-04-13] MEDS: MORPHINE IV ×3 (04:47→23:22)
[2023-04-13] MEDS: SODIUM CHLORIDE 0.9% IV ×3 (04:47→23:22)
[2023-04-13 09:20] VITALS: BP 98/48; PULSE 45; RESP 16; TEMP 36.1; O2SAT 88
--- NOTE | 2023-04-13 09:22 | P.PN_ITS ---
Subjective Subjective Interval history: Obtunded. Exam Vital Signs (past 8 hours): - 04/13/23 09:20 Temperature 97 F L Pulse Rate 45 L Respiratory Rate 16 Blood Pressure 98/48 L Pulse Oximetry 88 L Oxygen Flow Rate 0 Oxygen Delivery Method Room Air Oxygen Flow Rate 0 Narrative Exam Narrative: Appears comfortable, some agonal breathing. Slow rate of respiration. No spontaneous movement. Heart regular. Objective Labs 04/04/23 07:45 04/04/23 10:07 [facility] Social History household members: none Smoking Status: Unknown if ever smoked Assessment & Plan Assessment & Plan narrative: 1. Comfort care, eminent. Continue current measures including morphine drip. Quality VTE Deep Vein Thrombosis/Pulmonary Embolism Present on Admission: No
--- NOTE | 2023-04-13 10:26 | CM.DPC ---
Addendum entered by Bree Adrian R.N. 04/13/23 14:41: Spoke to TED Diana at [facility]. Had sent her updated clinicals. She indicated that her provider looked at the patient do not feel comfortable with her transporting there on this much morphine, feels there should be a nurse with her during transport. She also indicated that they do not currently have any availabilities. Original Note: DCP Cont: Hospitalist during rounds continues to state that patient is imminent. She has been on comfort care since Apr 04. She is continuing to get IV Morphine, no fluids or nutrition. OSIRIS Hartmann, had spoken to daughter yesterday, have stated, they do not feel comfortable with her going home, would be too hard on family. Patient originally came from [facility], but not accepting over the weekend. [facility] has no comfort beds, and [facility] does not feel comfortable meeting her needs. It is noted that [facility] in [place] was sent the referral. Called over a [facility], spoke to volunteer receptionist doctor's office. She will have one of the staff members call this DC Shaper Set Up Operator back with update. Daughters concerns are her passing away in route. It is unknown at this time when patient will , DC Shaper Set Up Operator will still need to look into lower level of care if possible. P: DCP to continue to follow. Have a message out to [facility] to see if she has been reviewed for possible acceptance. Bree Adrian RN/Assistant Professor Of Art
[2023-04-13] MEDS: HYDROMORPHONE 2 MG INJ 4 MG IV ×2 (18:27→21:09)
[2023-04-13] MEDS: LORazepam 2 MG/ML ORAL SOL SL (19:37)
[2023-04-14] MEDS: LORazepam 2 MG/ML ORAL SOL SL ×4 (01:55→15:58)
[2023-04-14] MEDS: HYDROMORPHONE 2 MG INJ 4 MG IV ×6 (04:19→17:18)
--- NOTE | 2023-04-14 08:21 | P.PN_ITS ---
Subjective Subjective Interval history: Obtunded. Exam Vital Signs (past 8 hours): Oxygen Delivery Method Room Air Oxygen Flow Rate 0 Narrative Exam Narrative: Obtunded, appears comfortable. Slow respirations. Abdomen flat. No edema. Dry mouth. Objective Labs 04/04/23 07:45 04/04/23 10:07 [facility] Social History household members: none Smoking Status: Unknown if ever smoked Assessment & Plan Assessment & Plan narrative: . Comfort care, eminent. Continue current measures including morphine drip (will trial off due to short supply and consider elixer). -increased fentanyl TD doses 04/13. Quality VTE Deep Vein Thrombosis/Pulmonary Embolism Present on Admission: No
[2023-04-14] MEDS: SCOPOLAMINE 1 PATCH TOP (08:37)
[2023-04-14 09:00] VITALS: BP 95/50; PULSE 48; RESP 15; TEMP 35.7; O2SAT 88
[2023-04-14] MEDS: SODIUM CHLORIDE 0.9% IV ×2 (10:24→19:43)
[2023-04-14] MEDS: MORPHINE IV (10:24)
[2023-04-14] MEDS: diazePAM 10 MG/2 ML SYRINGE 5 MG IV ×4 (11:00→17:39)
--- NOTE | 2023-04-14 11:26 | CM.DPC ---
DCP Cont Comfort Care Per MD, trialing pt off morphine drip as only one bag left in supply and pt appears comfortable but this morning did have moaning with respirations and increased fentanyl patch. MARK spoke to [facility] RN and discussed challenges with pt discharging the hospital due to family declining ability to care for pt at home with [facility] and [facility] and SNFs feel they cannot meet pt's needs on her current comfort meds. [facility] RN confirmed with their Provider Dr. Pryor that she would be agreeable to consult for med recommendations if needed if pt not appearing comfortable or towards attempts to discharge pt for ongoing comfort care and Dr. Pryor cell phone is [phone] and MARK updated MD. Per [facility] RN, anticipate if pt has gone without food and water for a number of days, pt should not survive much longer, maybe 1-2 days. Per RN, pt moved to room 222 and currently off morphine and will continue to monitor and updated Dtr via phone this AM. Mary Kate Fam MSW
[2023-04-14] MEDS: HYDROMORPHONE HCL IV (19:43)
--- NOTE | 2023-04-14 23:18 | PC.NURSE ---
Addendum entered by Kacy Cook R.N. 04/15/23 07:05: Has slept all night without indication of pain but now this morning after having brief changed patient is moaning more frequently, eyelids fluttering and making jerky, intermittent movements of upper extremities; medicated with Lorazepam. Original Note: Patient is nonresponsive except when cares are provided then begins moaning slightly but calm and quiet once cares completed. Respirations are nonlabored and breath sounds are CTA with RA sat of 90%. HRR but weak to auscultation. BT hypoactive and abdomen is rounded slightly. Has been having small amounts liquid, rai stool leaking from rectum. Indwelling catheter is patent; urine is dark kamryn. Is being repositioned q2h using tilt function of bed so as to allow for uninterrupted sleep during the night. Skin is cool to touch. Feet appear to have some foot drop and has 1+ edema in left foot/ankle. Does moan slightly when cares provided but once care completed she is calm and gives no appearance of pain/discomfort; currently on a dilaudid gtt for pain control. Attempts to provide mouth care are prevented as patient closes mouth and will not allow; lip moisturizer applied. Fall risk is coded as high but considered low due to being obtunded. Is on comfort care.
[2023-04-15] MEDS: HYDROMORPHONE HCL IV ×3 (04:38→22:30)
[2023-04-15] MEDS: SODIUM CHLORIDE 0.9% IV ×3 (04:38→22:30)
[2023-04-15] MEDS: LORazepam 2 MG/ML ORAL SOL SL (07:04)
[2023-04-15] MEDS: diazePAM 10 MG/2 ML SYRINGE 5 MG IV ×2 (08:56→11:57)
--- NOTE | 2023-04-15 09:10 | PM.PN.1 ---
Subjective Subjective Interval history: Obtunded, appears comfortable. Exam Vital Signs (past 8 hours): Oxygen Delivery Method Room Air Oxygen Flow Rate 0 Narrative Exam Narrative: Obtunded, appears comfortable. Slow respirations. Abdomen flat. No edema. Dry mouth. Objective Labs 04/04/23 07:45 04/04/23 10:07 [facility] Social History household members: none Smoking Status: Unknown if ever smoked Assessment & Plan Assessment & Plan narrative: Comfort care, eminent. Continue current measures including morphine drip (will trial off due to short supply and consider elixer). -increased Fentanyl TD doses 04/13. -switched morphine drip to Dilaudid drip. Quality VTE Deep Vein Thrombosis/Pulmonary Embolism Present on Admission: No
[2023-04-15] MEDS: MORPHINE 2 MG/ML INJ IV (11:57)
[2023-04-15 12:05] VITALS: PULSE 74; RESP 26; O2SAT 87
[2023-04-16] MEDS: HYDROMORPHONE IV (06:53)
[2023-04-16] MEDS: SODIUM CHLORIDE 0.9% IV (06:53)
--- NOTE | 2023-04-16 09:16 | PM.PN.1 ---
Subjective Subjective Interval history: Obtunded, appears comfortable. Exam Vital Signs (past 8 hours): Oxygen Delivery Method Room Air Oxygen Flow Rate 0 Narrative Exam Narrative: Obtunded Breathing relatively normally with some grunting. No signs of discomfort. Abdomen is flat. No leg edema. Objective Labs 04/04/23 07:45 04/04/23 10:07 [facility] Social History household members: none Smoking Status: Unknown if ever smoked Assessment & Plan Assessment & Plan narrative: Comfort care, eminent. Continue current measures including morphine drip (will trial off due to short supply and consider elixer). -increased Fentanyl TD doses 04/13. -switched morphine drip to Dilaudid drip. Patient's family is unable to accommodate her at home. Facilities are unable to accommodate to to current high doses of opiates. Quality VTE Deep Vein Thrombosis/Pulmonary Embolism Present on Admission: No
[2023-04-16 10:00] VITALS: BP 97/57; PULSE 77; RESP 20; TEMP 36.1; O2SAT 82
--- NOTE | 2023-04-16 10:19 | CM.DPC ---
DCP Cont. Reviewed EMR and team rounds for status updates. Pt's overall status has not changed, remains comfort care. ICU will turn off the dilaudid drip for a 2-hour trial today to determine if she is still requiring the high levels of opiates that she has been getting. Will continue to monitor for family support needs.
[2023-04-17] MEDS: diazePAM 10 MG/2 ML SYRINGE 5 MG IV (05:56)
--- NOTE | 2023-04-17 08:24 | CM.DPC ---
DCP Cont. Reviewed EMR for status updates. Pt continues her active dying process, she appears very comfortable, no s/s of anxiety or distress noted. Family expressing readiness for her to pass. Will continue to monitor for family support needs.
[2023-04-17] MEDS: SCOPOLAMINE 1 PATCH TOP (08:37)
--- NOTE | 2023-04-17 09:18 | PM.PN.1 ---
Subjective Subjective Interval history: Obtunded. Exam Vital Signs (past 8 hours): Oxygen Delivery Method Room Air Oxygen Flow Rate 0 Narrative Exam Narrative: Appears comfortable, obtunded. Breathing relatively normally. Abdomen is non-distended and soft. Extremities are free of edema. Objective Labs 04/04/23 07:45 04/04/23 10:07 [facility] Social History household members: none Smoking Status: Unknown if ever smoked Assessment & Plan Assessment & Plan narrative: Comfort care. Continue current measures . -increased Fentanyl TD doses 04/13. -the patient had been on very high doses of opiate infusions for the last week with no real clinical changes. We stopped these on April 16 with no evidence of any real change in her response. Given her persistent state, we will readdress whether or not family could take her home with home hospice now that she is only on transdermal fentanyl. We will also investigate facilities. Quality VTE Deep Vein Thrombosis/Pulmonary Embolism Present on Admission: No
[2023-04-18 10:00] VITALS: PULSE 90; O2SAT 86
--- NOTE | 2023-04-18 13:04 | PM.PN.1 ---
Subjective Subjective Interval history: Patient now 72hours without water. Appears comfortable. Daughter at bedside. Exam Vital Signs (past 8 hours): - 04/18/23 10:00 Pulse Rate 90 Pulse Oximetry 86 L Oxygen Flow Rate 0 Oxygen Delivery Method Room Air Oxygen Flow Rate 0 Narrative Exam Narrative: Appears comfortable, obtunded. Breathing relatively normally. Abdomen is non-distended and soft. Extremities are free of edema. Objective Labs 04/04/23 07:45 04/04/23 10:07 [facility] Social History household members: none Smoking Status: Unknown if ever smoked Assessment & Plan Assessment & Plan narrative: Comfort care. Continue current measures . -increased Fentanyl TD doses 04/13. -the patient had been on very high doses of opiate infusions for the last week with no real clinical changes. We stopped these on April 16 with no evidence of any real change in her response. Given her persistent state, we will readdress whether or not family could take her home with home hospice now that she is only on transdermal fentanyl. We will also investigate facilities. Dispo: Possible hospice home on 04/19. Quality VTE Deep Vein Thrombosis/Pulmonary Embolism Present on Admission: No
--- NOTE | 2023-04-18 13:06 | CM.DPC ---
DCP Cont. Reviewed EMR and team rounds for status updates. Pt continues comfort care/active dying status. Dtr at bedside, pt appearing comfortable. Called [facility] for second day in a row inquiring about bed availability. They have reviewed pt for admission, however there are still no beds available. Will continue to monitor.
--- NOTE | 2023-04-19 08:34 | CM.DPC ---
Addendum entered and electronically signed by OSIRIS Ryan 04/19/23 10:38: [facility] is reviewing for admission. Clinicals faxed. Pending. Original Note: DCP Cont. Reviewed EMR and met with floor RN to discuss pt's status. Pt continues with her active dying process, no longer imminent, but seems to have plateaued in terms of steady breathing, blood pressure, and pulse. Called the [facility] and left another message inquiring about bed availability and possible placement as soon as can be arranged. Requested return call.
[2023-04-19 08:46] VITALS: RESP 14; TEMP 36.6; O2SAT 85
[2023-04-19 10:15] VITALS: PULSE 71; O2SAT 91
--- NOTE | 2023-04-19 14:33 | PM.PN.1 ---
Subjective Subjective Interval history: Patient's respirations decreasing. Exam Vital Signs (past 8 hours): - 04/19/23 07:30 04/19/23 08:46 04/19/23 10:15 Temperature 97.9 F Pulse Rate 71 Respiratory Rate 14 Pulse Oximetry 85 L 91 Oxygen Delivery Method Room Air Oxygen Flow Rate 0 0 Oxygen Delivery Method Room Air Oxygen Flow Rate 0 Narrative Exam Narrative: Appears comfortable, obtunded. Breathing relatively normally. Abdomen is non-distended and soft. Extremities are free of edema. Objective Labs 04/04/23 07:45 04/04/23 10:07 [facility] Social History household members: none Smoking Status: Unknown if ever smoked Assessment & Plan Assessment & Plan narrative: Comfort care. Continue current measures . -increased Fentanyl doses 04/13. -the patient had been on very high doses of opiate infusions for the last week with no real clinical changes. We stopped these on April 16 with no evidence of any real change in her response. Dispo: Likely will pass in the hospital within 48 hours. Quality VTE Deep Vein Thrombosis/Pulmonary Embolism Present on Admission: No
--- NOTE | 2023-04-20 08:20 | CM.DPC ---
Addendum entered by Bree Adrian R.N. 04/20/23 14:19: CHUNG Jerez, called back when this DC Tailer Out was at lunch, and left a message. Confirmed that they do not have intake this weekend, paperwork, such as consents, need to be signed, and will not be able to occur until Saturday. She also expressed concerns with 45 [place] transfer [place] to their facility if imminent. Will follow up on Saturday, and ask for [facility], is patient does not over the weekend. Addendum entered by Bree Adrian R.N. 04/20/23 12:44: Left another message with CHUNG Jerez at [facility] regarding accepting patient. Addendum entered by Bree Adrian R.N. 04/20/23 11:41: Did discuss patient during team rounds. Let hospitalist know that this DC Tailer Out is working on [facility], they have not yet called back. Will attempt again later today. Original Note: DCP Cont: There was a message on the phone from [facility], from [facility]. OSIRIS Sutton, had been conversing with them yesterday, and working on getting patient accepted. Later in the day, Lesley had mentioned, they can take her, but she may pass here, it has been hard on the family. This DC Tailer Out spoke to the nurse, Sherri, and indicated, she did not feel that patient was yet ready to pass. The message from [facility] indicated that they would need to have the family sign consents, as well. This DC Tailer Out went ahead and called over at [facility]. Left a message for Lupis Romo at [facility] to see if she can be accepted today. Will also need to find out if room and board is covered, and about ambulance fees. This conversation will also need to be had with the family, for they have thought that she would pass here, and expected it. May include hospitalist, and OSIRIS in this conversation today if patient can be accepted. P: DCP working on getting patient into [facility] if they can accept today, or this weekend. Bree Adrian RN/Merchandise Buyer
[2023-04-20 08:22] VITALS: BP 108/32; PULSE 65; RESP 16; TEMP 36.6
[2023-04-20] MEDS: SCOPOLAMINE 1 PATCH TOP (08:45)
--- NOTE | 2023-04-20 11:14 | P.PN_ITS ---
Subjective Subjective Interval history: Patient's respirations decreasing. Exam Vital Signs (past 8 hours): - 04/20/23 08:00 04/20/23 08:22 Temperature 97.8 F Pulse Rate 65 Respiratory Rate 16 Blood Pressure 108/32 L Oxygen Delivery Method Room Air Oxygen Delivery Method Room Air Oxygen Flow Rate 0 Narrative Exam Narrative: Appears comfortable, obtunded. Breathing relatively normally. Abdomen is non-distended and soft. Extremities are free of edema. Objective Labs 04/04/23 07:45 04/04/23 10:07 [facility] Social History household members: none Smoking Status: Unknown if ever smoked Assessment & Plan Assessment & Plan narrative: Comfort care. Continue current measures . -increased Fentanyl doses 04/13. -the patient had been on very high doses of opiate infusions for the last week with no real clinical changes. We stopped these on April 16 with no evidence of any real change in her response. Dispo: Likely will pass in the hospital within 48 hours. Quality VTE Deep Vein Thrombosis/Pulmonary Embolism Present on Admission: No
--- NOTE | 2023-04-21 08:39 | CM.DPNOTE ---
DCP Note CARDIOLOGY TEACHER reviewed EMR. Per chart review, pt passed here in the hospital early this morning. CARDIOLOGY TEACHER called and lvm with [facility] to cancel referral. OSIRIS Alejandra
--- NOTE | 2023-04-23 15:04 | P.DN_ITS ---
Discharge Summary History of Illness Narrative: Per admitting provider, 87 years old [facility] resident with a past medical history of likely advanced dementia was [place] the [facility] [facility] for bleeding per rectum. Patient is very confused and not able to give any history. Documentation from the facility is not available as well. 1 for staff who speaks patient's language/Malaysian was able to get 1 or 2 words but otherwise patient was very confused. Speech is nonsensical. Local hospital was contacted by the emergency room and the review of the record showed recent evaluation about a week ago in the emergency room with a CT scan of the head was unremarkable and a CT abdomen showed fecal impaction with possible proctitis. Patient had received an enema with good bowel movement and was started on oral Augmentin. No further information is available at this time. In the ED, blood pressure was in the 120s and the heart rate in the 110s. Labs showed showed a hemoglobin of 12.3/WBC 19.5, sodium of 159 with a potassium of 3.4 and a chloride of 120/BUN of 60 and a CO2 of 25. Patient was initiated on D5 W and admitted for further evaluation Hospital Course Date of Admission: 04/04/23 04:17 Primary care provider: Georgia Lawrence MD Consults: 04/04/23 09:20 Consult to Hospice Referral Routine Comment: Discharge provider: Colton Che DO Discharge Diagnosis: 1. Hypernatremia severe, present on admission. 2 Hypokalemia 3. Severe advanced Dementia. 4. Leukocytosis 5 bleeding per rectum. Hospital Course: This is an 87 year old patient with PMH of dementia who presented to the ER with rectal bleeding. She had been seen recently at an outside ER for stercoral colitis. She was markedly hypernatremic and dehydrated. After initial fluid rehydration, goals of care discussion with family, patient was made comfort care due to her dehydration, urinary retention and constipation likely a result of severe dehydration due to advancing dementia with lack of appetite. She required a lot of narcotic pain medications to remain comfortable, quickly requiring a morphine infusion. This was started on 04/04, and pain medications were adjusted frequently to keep her comfortable. She appeared near nearly every day after initiation of morphine, with slow breathing and hypoxia continuing until she on 04/20/2023. Objective Labs 04/04/23 07:45 04/04/23 10:07
--- NOTE | 2023-04-25 14:58 | PC.NURSE ---
Late entry: 04/05/23 10mg Diazepam removed from Pyxis 5mg wasted in Pyxis, 5mg administered to pt IV, medication scan was not saved in the computer.
== END 2023-04-20 23:53 | disposition expired | DRG 641 ==
LOC: ED 04:12 → AC 04:21 → ICU 05:09 → AC 04-05 15:43 → ICU 04-05 16:00 → AC 04-14 09:20
PROVIDERS: Student in an Organized Health Care Education/Training Program; Admitting Provider Internal Medicine; Emergency Provider Emergency Medicine; PCP Internal Medicine; Referring Provider Emergency Medicine; Visit Provider Internal Medicine
DX: E86.1 Hypovolemia (principal); K62.5 Hemorrhage of anus and rectum; E87.0 Hyperosmolality and hypernatremia; E87.6 Hypokalemia; F03.90 Unspecified dementia, unspecified severity, without behavioral disturbance, psychotic disturbance, mood disturbance, and anxiety; E86.0 Dehydration; Z51.5 Encounter for palliative care; Z66 Do not resuscitate
CPT/HCPCS: 36415; 80048; 83605; 83735; 84145; 84295; 85025; 87797; 99283; 99284; J1170; J2270; J2560; J3360